=== PATIENT | female | born 2000 | race Two or more races ===

== ENCOUNTER 2020-09-25 13:03 | Emergency (ER) | payer MEDICAID, OTHER ==
[~2020-09-25] VITALS: Ht 154.9 cm; Wt 54.4 kg
[2020-09-25 13:20] VITALS: BP 115/68
[2020-09-25] MEDS ORDERED: HYDROcodone-ACET 5/325MG TAB PO ONE (15:00)
== END 2020-09-25 15:52 | disposition home or self-care (01) ==
LOC: ER 13:03
DX: S92.901A Unspecified fracture of right foot, initial encounter for closed fracture (principal); V43.52XA Car driver injured in collision with other type car in traffic accident, initial encounter; Y93.89 Activity, other specified; Y92.89 Other specified places as the place of occurrence of the external cause; Y99.8 Other external cause status
CPT/HCPCS: 29515; 73600; 73630